=== PATIENT | male | born 1950 | race Two or more races ===

== ENCOUNTER → 2019-03-10 11:54 | Outpatient (CLI) | payer OTHER | END | disposition home or self-care (01) | LOC: LAB 11:54 | DX: N18.1 Chronic kidney disease, stage 1 (principal) ==

== ENCOUNTER → 2019-03-15 | Outpatient (CLI) | payer OTHER | END | disposition home or self-care (01) | LOC: NUCLEAR 10:00 | DX: I65.23 Occlusion and stenosis of bilateral carotid arteries (principal) ==

== ENCOUNTER 2019-03-17 10:54 | Outpatient (CLI) | payer OTHER | END 2019-03-17 10:57 | disposition home or self-care (01) | LOC: MRI 10:54 | DX: G45.4 Transient global amnesia (principal); G45.8 Other transient cerebral ischemic attacks and related syndromes | CPT/HCPCS: 70553; A9575 ==